=== PATIENT | female | born 1935 | race Caucasian/White ===

== ENCOUNTER → 2016-08-21 | Day surgery (SDC) | payer OTHER ==
[2016-08-14 10:51] VITALS: BMI 26.0
[~2016-08-21] VITALS: Ht 160 cm; Wt 68.2 kg
[~2016-08-21] MED LIST: ASPI81TA21 PO; ATROPINE SULFATE 0.1 MG/ML 5ML SYR IV PRN; B-COTAB53 PO; BELLADONNA/OPIUM SUPP 60 MG SUPP PR ONE; BIOTCAP2 PO; CEFAZOLIN 2000 MG/60 ML D5W IV SCH; CEFAZOLIN IV 2,000 MG/60 ML D5W IV ONE; COUMADIN PO; DEXAMETHASONE SOD INJ 4 MG/ML VIAL ONE; EpHEDrine SULFATE INJ 50 MG/ML AMP IV PRN; FENTANYL CITRATE INJ 50 MCG/1 ML 2 ML VIAL ONE; FERR325T18 PO; FURO-85 PO; HYDR2TAB48 PO; HYDROmorphone INJ 2 MG/ML SYR/VIAL IV PRN; INSDGIPEN SQ; LACTATED RINGER'S 1000ML 1,000 ML IV SCH; LIDOCAINE HCL 2% 2 ML VIAL (20MG/ML) ONE; LNX125 PO; LPT/40 PO; MDR4 PO; METO50TA16 PO; MIDAZOLAM HCL 1 MG/ML 2ML VIAL ONE; NVLGI/PEN SQ; ONDANSETRON INJ 2 MG/ML 2 ML VIAL IV PRN; ONDANSETRON INJ 2 MG/ML 2 ML VIAL ONE; PHEN-775 PO; PHENYLEPHRINE 100MCG/ML 5ML SYR IV PRN; POTA10CA28 PO; PRLSR20 PO; PROPOFOL IV EMULSION 10 MG/ML 20 ML VIAL IV ONE; SERT-234 PO; SITA25TA PO; WARF2TAB8 PO; ZOLP10TA6 PO; [UNRECOGNIZED DRUG - CODE] PO; [UNRECOGNIZED DRUG - CODE] PO
[2016-08-21 08:34] VITALS: BP 163/91; PULSE 73; TEMP 36.9; O2SAT 96; Ht 160 cm; Wt 68.2 kg
[2016-08-21 08:40] LABS: HEMATOCRIT 33.4 % (37-47); MEAN CELL VOLUME 88.8 fL (80-100); MEAN CORPUSCULAR HEMOGLOBIN 28.7 pg (25-34); MEAN PLATELET VOLUME 10.2 fL (7.4-10.4); PLATELET COUNT 304 K/uL (130-400); RED BLOOD COUNT 3.76 M/uL (4.2-5.4); WHITE BLOOD COUNT 14.02 K/uL (4.8-10.8)
[2016-08-21 08:51] LABS: MEAN CORPUSCULAR HGB CONC 32.3 g/dl (32-36); PROTHROMBIN TIME (PATIENT) 11.1 SECONDS (9.0-12.0)
[2016-08-21 09:09] LABS: BUN/CREATININE RATIO 23.6 (10-20); CALCIUM 8.6 mg/dl (8.5-10.1); CREATININE 1.9 mg/dl (0.60-1.20); POTASSIUM 3.5 mmol/L (3.5-5.1)
--- NOTE | 2016-08-21 09:27 | History and Physical ---
History Date of Service: Aug 21, 2016. Chief Complaint: bladder tumor Primary Care Physician: Fabian Mejias D.O. Pt seen a urologist before?: Yes If yes, why?: bladder tumor History of Present Illness Patient presents for turbt. Tumor was seen incidentally on u/s and confirmed with cysto in office. Imaging Ultrasound Laboratory Labs were reviewed and are within normal limits unless listed below. Labs are available in the chart and at [facility] Past History Past Medical History: A Fib, arthritis, depression, diabetes, GERD, vascular disease, other (polymyalgia rheumatica) Past Surgical History: cholecystectomy, THR, TKR, tonsillectomy, other Family History Colon cancer FATHER MOTHER Aunt Wilms tumor DAUGHTER Social History Hx Tobacco Use In Past Year?: No (QUIT 1983) Smoking: quit greater than 1 year Alcohol: never Marital status: Housing status: lives alone Occupation status: retired Immunizations History of Influenza Vaccine: Yes Influenza Vaccine Date: May 18, 2009 History of Tetanus Vaccine?: Yes Tetanus Immunization Date: Aug 18, 2005 History of Pneumococcal: Yes Pneumococcal Date: Aug 18, 2005 History of Hepatitis B Vaccine: Unknown History of MDRO No Allergies Coded Allergies: No Known Allergies (Verified , `, 08/21/16) Medications Home Medications: Home Meds and Scripts Medications Dose Route/Sig Max Daily Dose Days Date Category Dose Instructions [Coumadin] 1 Dose PO UD 08/20/16 Reported STOPPED PER COUMADIN CLINIC ON 08/15/16 Dilaudid (Hydromorphone Hcl) 2 Mg Tab 2 Mg PO BID 06/05/16 Reported Lopressor (Metoprolol Tartrate) 50 Mg Tab 50 Mg PO QAM 06/05/16 Reported Lasix (Furosemide) 20 Mg Tab 0.5 Tab PO QAM 90 06/05/16 Reported Biotin 5000 (Biotin) 5 Mg Cap 5,000 Mcg PO QAM 05/13/16 Reported Lantus Solostar (Insulin Glargine) 100 Unit/Ml Inj 10 SQ HS 05/13/16 Reported Zolpidem Tartrate 10 Mg Tab 5 Mg PO HS 30 05/13/16 Reported Novolog Flexpen (Insulin Aspart) 100 Units/Ml Inj 18 SQ TIDM 05/13/16 Reported B Complex (B-Complex W/ Folic Acid) 1 Tab Tab 1 Tab PO QAM 03/21/15 Reported Sodium Bicarbonate 650 Mg Tab 650 Mg PO QAM 03/21/15 Reported Januvia (Sitagliptin Phosphate) 25 Mg Tab 25 Mg PO QAM 03/21/15 Reported Zoloft (Sertraline HCl) 100 Mg Tab 150 Mg PO HS 03/21/15 Reported Methylprednisolone 4 Mg Tab 4 Mg PO QAM 03/21/15 Reported Diltiazem Cd (Diltiazem Hcl Coated Beads) 300 Mg Cap 300 Mg PO QAM 03/21/15 Reported Digoxin 0.125 Mg Tab 125 Mcg PO M, W F 03/21/15 Reported Take 1 tablet by mouth 3 times a week. Lipitor (Atorvastatin) 40 Mg Tab 40 Mg PO QAM 03/21/15 Reported Ecotrin Or Generic (Aspirin) 81 Mg Tab 81 Mg PO HS 03/21/15 Reported Inpatient Medications: Current Inpatient Medications Medications (Trade) Dose Ordered Sig/Coleman Route Start Time Stop Time Status Last Admin Dose Admin Lactated Ringer's (Lr 1000ml) 1,000 ml @ 15 mls/hr Q24H IV 08/21/16 06:00 08/22/16 05:59 08/21/16 08:40 15 MLS/HR Review of Systems Review of Systems Constitutional: No chills, No fever Neurological: + problem reported (frequent falls), No dizzy Cardiovascular: + irregular heartbeat, + palpitations, No chest pain, No swelling ankles/feet Respiratory: + chronic cough, No shortness of breath, No wheezing Musculoskeletal: + arthritis Female : No blood in urine, No frequent urination, No kidney stones Physical Exam Vital Signs: Vital Signs Past 12 Hours Date Time Temp Pulse Resp B/P Pulse Ox O2 Delivery O2 Flow Rate FiO2 08/21/16 08:34 36.9 73 20 163/91 96 Room Air Physical Exam: General Appearance: WD/WN, no apparent distress, + obese Eyes: bilateral eyes normal inspection ENT: hearing grossly normal Neck: supple Respiratory/Chest: lungs clear, normal breath sounds, no respiratory distress, no accessory muscle use Cardiovascular: no edema, no murmur, + irregularly irregular Extremities: non-tender, normal inspection, no pedal edema, no calf tenderness , + pertinent finding (left toe ulcer) Neurologic/Psychiatric: alert, normal mood/affect, oriented x 3 Skin: normal color, warm/dry, no rash Assessment & Plan Assessment & Plan trigone bladder tumor plan TURBT lma try to keep light elza lessen the prlonged weakness she has had in past. ancef nutrition services assistant
--- NOTE | 2016-08-21 11:18 | [facility] Operative Report ---
Operative Report Operative Date Aug 21, 2016. Pre-Operative Diagnosis Large Bladder Tumor Post-Operative Diagnosis same Procedure(s) Performed TURBT large Surgeon Dr. Katia Jiang Service Department Manager Surgeon(s) none Estimated Blood Loss 100ml Findings sessile very vascular 60mm bladder tumor right posterior wall and right posterior trigone Fluids 850mL Specimens A.) Bladder Tumor Drains 18 fr byrne with 5mL in balloon Anesthesia LMA Complication(s) None Disposition Recovery Room / PACU Indications bladder tumor seen on office cysto Description of Procedure Patient was given general LMA and placed in lithotomy position. Her genitals were prepped and draped in sterile fashion. Time out held with team. I placed a 26 fr rigid resectoscope to bladder. The urethra is unremarkable. The UOs are in normal location. I used the thin loop the bipolar instrument and saline irrigation to resect the tumor. About a dozen times resection unroofed such a large vessel that I had to switch to the button to get the vessel cauterized and stopped. The tumor is large 60mm or more and widely adherent to the bladder with many large vessels feeding it. At its inferior edge she has some fine papillary tumor at edge going into a cellule. This was just cauterized to destroy the papillary component. I resected all of tumor and rinsed the bladder copiously to remove all debris. The tumor chips were sent for pathologic review. I left bladder empty by placing a 18 fr byrne and inflating balloon with 5mL of water. She was connected to gravity drainage bag and leg strap. I placed a belladonna and opium suppository for post-op pain. She transferred to recovery under my escort, in stable condition. Plan: Home today Pyridium for dysuria prn oral pain meds as needed byrne for 2 days. ASA 3 clean contaminated case ancef antibiotic registration officer I attest to the content of the Intraoperative Record and any orders documented therein. Any exceptions are noted below.
--- NOTE | 2016-08-21 11:23 | Discharge Instructions ---
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 ) Shower/Bathe: no limitations . Instructions / Follow-Up Instructions / Follow-Up you will keep Villalpando catheter until Friday we will bring you [facility] to remove drink extra fluids to keep bladder rinsed out urine will be bloody on and off for a month or 2. Call if the catheter does not drain for over 2 hours. You may start coumadin tomorrow 08/22/16. Use tyenol 500-650 mg every 6 hours as needed for pain, Discharge Diet Recommended Diet: Diabetes Type 2 Diet, Renal Diet Fluid Restriction: None Procedures Procedures Performed: Transurethral Resection Bladder Tumor, Large Bladder Tumor Pending Studies Studies pending at discharge: yes (pathology ) List of pending studies: pathology Medical Emergencies . Who to Call and When: Medical Emergencies: If at any time you feel your situation is an emergency, please call 911 immediately. . Non-Emergent Contact Non-Emergency issues call your: Urologist ([phone]) Call Non-Emergent contact if: temperature is above 100.5 . . "Provider Documentation" section prepared by Katia Jiang. VTE Core Measure Inpt VTE Proph given/why not?: SCD's
[2016-08-21 12:10] VITALS: BP 158/61; PULSE 62; TEMP 36.7; O2SAT 93
--- NOTE | 2016-08-21 12:32 | Anesthesiology Progress Note ---
Anesthesia Post Op Note Date & Time Aug 21, 2016 at 12:31 Vital Signs Pain Intensity: 0 Vital Signs Past 12 Hours Date Time Temp Pulse Resp B/P Pulse Ox O2 Delivery O2 Flow Rate FiO2 08/21/16 12:10 36.7 62 18 158/61 93 Nasal Cannula 2 08/21/16 11:58 67 23 08/21/16 11:58 63 23 167/73 97 08/21/16 11:58 36.4 61 17 167/73 98 Nasal Cannula 2 08/21/16 11:53 62 17 169/71 98 08/21/16 11:53 61 17 08/21/16 11:48 58 17 155/86 94 08/21/16 11:48 62 17 08/21/16 11:47 56 14 99 08/21/16 11:47 57 14 08/21/16 11:43 157/74 08/21/16 11:42 61 17 88 08/21/16 11:42 64 17 08/21/16 11:38 146/74 08/21/16 11:37 59 19 08/21/16 11:37 60 19 94 08/21/16 11:33 168/75 08/21/16 11:32 63 18 08/21/16 11:32 70 18 89 08/21/16 11:28 172/70 08/21/16 11:27 61 15 08/21/16 11:27 61 15 100 08/21/16 11:23 172/69 08/21/16 11:22 59 11 100 08/21/16 11:22 56 11 08/21/16 11:18 164/72 08/21/16 11:17 64 13 08/21/16 11:17 36.3 66 16 151/65 100 Mask 10 08/21/16 11:17 59 13 100 08/21/16 08:34 36.9 73 20 163/91 96 Room Air Notes Mental Status: alert / awake / arousable, participated in evaluation Pt Amnestic to Procedure: Yes Nausea / Vomiting: adequately controlled Pain: adequately controlled Airway Patency, RR, SpO2: stable & adequate BP & HR: stable & adequate Hydration State: stable & adequate Anesthetic Complications: no major complications apparent
[2016-08-21 12:40] VITALS: BP 158/61; PULSE 59; O2SAT 95
[2016-08-21 13:10] VITALS: BP 123/42; PULSE 67; TEMP 36.6; O2SAT 100
== END | disposition home or self-care (01) ==
LOC: C.ACU 07:55
PROVIDERS: ATTEND Urology
DX: C67.9 Malignant neoplasm of bladder, unspecified (principal); I48.91 Unspecified atrial fibrillation; K21.9 Gastro-esophageal reflux disease without esophagitis; F32.9 Major depressive disorder, single episode, unspecified; E11.9 Type 2 diabetes mellitus without complications; Z80.0 Family history of malignant neoplasm of digestive organs; Z79.82 Long term (current) use of aspirin; Z98.890 Other specified postprocedural states; Z79.01 Long term (current) use of anticoagulants; Z79.4 Long term (current) use of insulin

== ENCOUNTER → 2016-11-20 | Day surgery (SDC) | payer OTHER ==
[2016-10-02 09:56] VITALS: BMI 26.0
[~2016-11-20] VITALS: Ht 160 cm; Wt 68.2 kg
[~2016-11-20] MED LIST changes: -CEFAZOLIN IV 2,000 MG/60 ML D5W IV ONE; -DEXAMETHASONE SOD INJ 4 MG/ML VIAL ONE; +FENTANYL CITRATE INJ 50 MCG/1 ML 2 ML VIAL IV PRN; +HYDROmorphone INJ 1 MG/ML SYR IV PRN; -HYDROmorphone INJ 2 MG/ML SYR/VIAL IV PRN; +LABETALOL HCL IV 5 MG/ML 20ML IV PRN; -LACTATED RINGER'S 1000ML 1,000 ML IV SCH; +MEPERIDINE HCL 25 MG/ML CARP IV PRN; +METOPROLOL TARTRATE 1 MG/ML VIAL ONE; -MIDAZOLAM HCL 1 MG/ML 2ML VIAL ONE; -ONDANSETRON INJ 2 MG/ML 2 ML VIAL ONE; -PHEN-775 PO; -PHENYLEPHRINE 100MCG/ML 5ML SYR IV PRN; +ROCURONIUM BROMIDE 10 MG/ML 5 ML VIAL ONE; +SODIUM CHLORIDE 0.9% 1000ML 1,000 ML IV SCH; +SODIUM CHLORIDE 0.9% 1000ML IV SCH
[2016-11-20 10:38] VITALS: BP 164/87; PULSE 108; TEMP 36.7; O2SAT 98; Ht 160 cm; Wt 68.2 kg
[2016-11-20 10:38] LABS: HEMATOCRIT 37.9 % (37-47); MEAN CELL VOLUME 95.9 fL (80-100); MEAN CORPUSCULAR HEMOGLOBIN 31.1 pg (25-34); MEAN PLATELET VOLUME 10.2 fL (7.4-10.4); PLATELET COUNT 267 K/uL (130-400); RED BLOOD COUNT 3.95 M/uL (4.2-5.4)
[2016-11-20 10:43] LABS: MEAN CORPUSCULAR HGB CONC 32.5 g/dl (32-36)
[2016-11-20 10:46] LABS: PARTIAL THROMBOPLASTIN RATIO 0.9; PROTHROMBIN TIME (PATIENT) 11.1 SECONDS (9.0-12.0)
--- NOTE | 2016-11-20 12:28 | History and Physical ---
History Date of Service: Nov 20, 2016. Chief Complaint: bladder cancer Primary Care Physician: Fabian Mejias D.O. Pt seen a urologist before?: Yes If yes, why?: bladder cancer History of Present Illness Patient presents for completion resection of a large sessile bladder tumor. Laboratory Labs were reviewed and are within normal limits unless listed below. Labs are available in the chart and at [facility] Past History Past Medical History: A Fib, arthritis, depression, diabetes, GERD, vascular disease, other Past Surgical History: cholecystectomy, THR, TKR, tonsillectomy, other ( vascular stents) Family History Colon cancer FATHER MOTHER Aunt Wilms tumor DAUGHTER not relevant for her age Social History Hx Tobacco Use In Past Year?: No (QUIT 1983) Smoking: quit greater than 1 year Alcohol: never Marital status: Housing status: lives alone Occupation status: retired Immunizations History of Influenza Vaccine: Yes Influenza Vaccine Date: May 18, 2009 History of Tetanus Vaccine?: Yes Tetanus Immunization Date: Aug 18, 2005 History of Pneumococcal: Yes Pneumococcal Date: Aug 18, 2005 History of Hepatitis B Vaccine: Unknown History of MDRO No Allergies Coded Allergies: No Known Allergies (Verified , `, 11/20/16) Medications Home Medications: Home Meds and Scripts Medications Dose Route/Sig Max Daily Dose Days Date Category Dose Instructions Micro-K Ext Rel (Potassium Chloride) 10 Meq Capcr 10 Meq PO DAILY 11/20/16 Reported Ferrous Gluconate 324 Mg Tab 324 Mg PO DAILY 11/20/16 Reported Jantoven (Warfarin Sodium) 2 Mg Tab 1 Mg PO DIRECTED 11/20/16 Reported takes 1mg or 1/2 of 2mg tab on Tuesdays Jantoven (Warfarin Sodium) 2 Mg Tab 2 Mg PO DIRECTED 11/20/16 Reported takes full 2mg tablet daily except . 1/2 tablet/1mg Prilosec (Omeprazole) 20 Mg Capcr 20 Mg PO DAILY 11/20/16 Reported Dilaudid (Hydromorphone Hcl) 2 Mg Tab 2 Mg PO BID 06/05/16 Reported Lopressor (Metoprolol Tartrate) 50 Mg Tab 50 Mg PO QAM 06/05/16 Reported Lasix (Furosemide) 20 Mg Tab 0.5 Tab PO QAM 90 06/05/16 Reported Biotin 5000 (Biotin) 5 Mg Cap 5,000 Mcg PO QAM 05/13/16 Reported Lantus Solostar (Insulin Glargine) 100 Unit/Ml Inj 10 SQ HS 05/13/16 Reported Zolpidem Tartrate 10 Mg Tab 5 Mg PO HS 30 05/13/16 Reported Novolog Flexpen (Insulin Aspart) 100 Units/Ml Inj 16 SQ TIDM 05/13/16 Reported B Complex (B-Complex W/ Folic Acid) 1 Tab Tab 1 Tab PO QAM 03/21/15 Reported Sodium Bicarbonate 650 Mg Tab 650 Mg PO QAM 03/21/15 Reported Januvia (Sitagliptin Phosphate) 25 Mg Tab 25 Mg PO QAM 03/21/15 Reported Zoloft (Sertraline HCl) 100 Mg Tab 150 Mg PO HS 03/21/15 Reported Methylprednisolone 4 Mg Tab 4 Mg PO QAM 03/21/15 Reported Diltiazem Cd (Diltiazem Hcl Coated Beads) 300 Mg Cap 300 Mg PO QAM 03/21/15 Reported Digoxin 0.125 Mg Tab 125 Mcg PO M, W F 03/21/15 Reported Take 1 tablet by mouth 3 times a week. Lipitor (Atorvastatin) 40 Mg Tab 40 Mg PO QAM 03/21/15 Reported Ecotrin Or Generic (Aspirin) 81 Mg Tab 81 Mg PO HS 03/21/15 Reported Inpatient Medications: Current Inpatient Medications Medications (Trade) Dose Ordered Sig/Coleman Route Start Time Stop Time Status Last Admin Dose Admin Sodium Chloride 1,000 ml @ 15 mls/hr Q24H IV 11/20/16 06:00 11/20/16 18:00 Cefazolin Sodium (Ancef 2000mg/60 ml D5W) 60 ml @ 100 mls/hr PREOP IV 11/20/16 06:00 11/20/16 18:00 Review of Systems Review of Systems Constitutional: No chills, No fever Gastrointestinal: No abdominal pain, No nausea, No vomiting Cardiovascular: No chest pain Respiratory: No shortness of breath Female : + blood in urine, + frequent urination Physical Exam Vital Signs: Vital Signs Past 12 Hours Date Time Temp Pulse Resp B/P Pulse Ox O2 Delivery O2 Flow Rate FiO2 11/20/16 10:38 36.7 108 20 164/87 98 Room Air Physical Exam: General Appearance: WD/WN, no apparent distress, + thin Eyes: bilateral eyes normal inspection ENT: hearing grossly normal Respiratory/Chest: lungs clear, normal breath sounds, no respiratory distress, no accessory muscle use Cardiovascular: regular rate, rhythm, no edema, + irregularly irregular Extremities: non-tender, normal inspection, no pedal edema, no calf tenderness , normal capillary refill Neurologic/Psychiatric: alert, normal mood/affect, oriented x 3 Assessment & Plan Assessment & Plan large bladder tumor plan TURBT only partly resected first time 2 months ago due to brisk bleeding. plan completion resection today,. 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
--- NOTE | 2016-11-20 13:40 | [facility] Operative Report ---
Operative Report Operative Date Nov 20, 2016. 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 Fluids 600mL Specimens A. Anterior wall and Right Trigone Tumor Drains none Anesthesia GET Complication(s) None Disposition Recovery Room / PACU Indications large T1G3 urothelial cancer resected in Aug 2016. She presents for repeat resection per standard of care. Description of Procedure Patient had GET general anesthesia and was placed in lithotomy position. Her genitals were prepped and draped in sterile fashion. Time out held with team. I placed a 26 fr resectoscope to the bladder. The bladder is unremarkable. There is complete resection of the original large right posterior and trigone tumor. No recurrent or persistent tumor seen here. There is fine papillary persistent tumor on the left anterior bladder neck 40mm and about 8 small papillary 5mm satellite lesions on anterior , posterior and lateral reid. I used thin loop to resect all tumors and obtain hemostasis. Chips were irrigated out and sent for specimen. Saline was the irrigating solution. I rinsed bladder copiously and left her empty. I placed a B and O suppository for post-op pain. She extubated uneventfully and transferred to recovery room in stable condition. Plan: home today path discussion by phone next week. bcg induction in 8 weeks office cysto in 4 months I attest to the content of the Intraoperative Record and any orders documented therein. Any exceptions are noted below.
--- NOTE | 2016-11-20 13:43 | Discharge Instructions ---
Discharge Instructions Date of Service Nov 20, 2016. Admission Reason for Admission: Malignant Neoplasm Of Bladder Discharge Discharge Diagnosis / Problem: bladder cancer Discharge Goals Goal(s): Improve disease control Activity Recommendations Activity Limitations: as noted below Lifting Limitations: no more than 25 pounds Exercise/Sports Limitations: gradually increase as tolerated Shower/Bathe: no limitations Driving or Machine Use: resume 1 day after discharge . Instructions / Follow-Up Instructions / Follow-Up we will call with pathology result. We will call with follow up plan Urine may be bloody for several weeks drink extra fluids when urine is bloody go to ER if unable to pass urine for over 6 hours Discharge Diet Recommended Diet: Regular Diet Fluid Restriction: None Procedures Procedures Performed: Transurethral Resection Bladder Tumor Pending Studies Studies pending at discharge: yes List of pending studies: pathology Medical Emergencies . Who to Call and When: Medical Emergencies: If at any time you feel your situation is an emergency, please call 911 immediately. . Non-Emergent Contact Non-Emergency issues call your: Urologist ([phone]) Call Non-Emergent contact if: temperature is above 100.5 . . "Provider Documentation" section prepared by Katia Jiang. . VTE Core Measure Inpt VTE Proph given/why not?: SCD's [place] Drug Monitoring Program Search Results: patient reviewed within database, no issues identified
--- NOTE | 2016-11-20 14:04 | Anesthesiology Progress Note ---
Anesthesia Post Op Note Date & Time Nov 20, 2016 at 14:03 Vital Signs Pain Intensity: 0 Vital Signs Past 12 Hours Date Time Temp Pulse Resp B/P Pulse Ox O2 Delivery O2 Flow Rate FiO2 11/20/16 14:00 88 16 112/83 96 Nasal Cannula 11/20/16 13:50 67 16 136/67 95 Nasal Cannula 11/20/16 13:40 72 16 140/74 100 Mask 10 11/20/16 13:33 36.6 98 16 124/85 100 Mask 10 11/20/16 10:38 36.7 108 20 164/87 98 Room Air Notes Mental Status: alert / awake / arousable, participated in evaluation Pt Amnestic to Procedure: Yes Nausea / Vomiting: adequately controlled Pain: adequately controlled Airway Patency, RR, SpO2: stable & adequate BP & HR: stable & adequate Hydration State: stable & adequate Anesthetic Complications: no major complications apparent
[2016-11-20 14:13] VITALS: BP 141/77; PULSE 69; TEMP 36.9; O2SAT 93
[2016-11-20 14:54] VITALS: BP 118/80; PULSE 79; TEMP 36.8; O2SAT 95
[2016-11-20 15:15] VITALS: BP 109/53; PULSE 81; TEMP 36.4; O2SAT 94
== END | disposition home or self-care (01) ==
LOC: C.ACU 09:40
PROVIDERS: ATTEND Urology
DX: C67.5 Malignant neoplasm of bladder neck (principal); I48.91 Unspecified atrial fibrillation; E11.9 Type 2 diabetes mellitus without complications; K21.9 Gastro-esophageal reflux disease without esophagitis; F32.9 Major depressive disorder, single episode, unspecified; M19.91 Primary osteoarthritis, unspecified site; Z87.891 Personal history of nicotine dependence; Z80.0 Family history of malignant neoplasm of digestive organs; Z79.899 Other long term (current) drug therapy; Z79.01 Long term (current) use of anticoagulants; Z79.4 Long term (current) use of insulin